=== PATIENT | female | born 1985 | race African-American/Black ===

== ENCOUNTER → 2020-07-17 | Outpatient (CLI) | payer OTHER ==
--- NOTE | 2020-07-17 12:12 | REPMRS ---
Patient History The patient states she had a clinical breast exam 07-02-2020. No known family history of cancer. No Hormone Replacement Therapy Indicated problem(s): bilateral pain (global). T- Pt identified. Pt states not . Baseline Mammo. Covid vaccine 06-17-2020 left arm, 07-15-2020 left arm. RKB Patient has signed MRS History Sheet. Diagnostic Bilateral Mammo: July 17, 2020 - Exam #: [id number] Bilateral CC and MLO view(s) were taken. Technologist: Deidre Walker, Interior Design Project Manager FINDINGS: The breast tissue is almost entirely fat. The Volpara volumetric breast density category is: A. This patient has homogeneously fat replaced breast parenchyma. A with history of diffuse bilateral mastodynia, I did not feel there was a role for ultrasound. There is no evidence of dominant mass, architectural distortion, or grouped microcalcification typical of malignancy. 3-D tomosynthesis shows no additional findings. Assessment: BI-RADS/ACR category 1 mammogram. Negative Mammogram. Recommendation Routine screening mammogram of both breasts in 1 year (for women over age 40). This patient's [facility] Lifetime Breast Cancer RIsk is estimated at 10.5 %. This mammogram was interpreted with the aid of an FDA-approved computer-aided dectection system. Electronically Signed By: Dewayne Brandon MD 07/17/20 [id number]
== END ==
LOC: M WHC 10:50
PROVIDERS: ATTEND Family Medicine
DX: N64.4 Mastodynia (principal)
CPT/HCPCS: 77066; G0279